=== PATIENT | male | born 1985 | race African-American/Black ===

== ENCOUNTER 2021-10-05 05:14 | Emergency (ER) | payer MEDICAID ==
[~2021-10-05] VITALS: Ht 167.6 cm; Wt 64.0 kg
[2021-10-05 05:20] VITALS: BP 0/0
== END 2021-10-05 08:40 ==
LOC: ER 05:25 → EDBD 05:25 → ER 08:40
DX: I46.9 Cardiac arrest, cause unspecified (principal); F15.90 Other stimulant use, unspecified, uncomplicated; Z59.00 Homelessness unspecified
CPT/HCPCS: 31500; 92950; 99291